=== PATIENT | female | born 1950 | race Two or more races ===

== ENCOUNTER 2020-05-14 08:31 | Emergency (ER) | payer OTHER ==
[~2020-05-14] VITALS: Ht 152.4 cm; Wt 78.0 kg
[2020-05-14 08:47] VITALS: BP 169/70
== END 2020-05-14 09:51 | disposition home or self-care (01) ==
LOC: ER 08:31
DX: M79.651 Pain in right thigh (principal); M54.31 Sciatica, right side; D64.9 Anemia, unspecified; E11.9 Type 2 diabetes mellitus without complications; I10 Essential (primary) hypertension; Z86.73 Personal history of transient ischemic attack (TIA), and cerebral infarction without residual deficits
CPT/HCPCS: 93971

== ENCOUNTER 2024-04-04 13:48 | Inpatient (IN) | payer OTHER ==
[~2024-04-04] VITALS: Ht 157.5 cm; Wt 74.6 kg
[~2024-04-04 13:48] MED LIST: CAPT25TA5 PO; METF-371 PO
[2024-04-04 14:41] LABS: Urine Bacteria None Seen /hpf (None Seen)
[2024-04-04 14:50] LABS: Urine Blood Negative /uL (Negative); Urine Clarity Clear (Clear); Urine Color Colorless (Yellow); Urine Protein, UAD Negative (Negative); Urine Specific Gravity 1.005 (1.001-1.035); Urine Urobilinogen Normal (Negative); Urine WBC <1 /hpf (0 - 5); Urine pH 5.5 (5.0-9.0)
[2024-04-04 14:59] LABS: Basophils # (auto) 0 10 ^3/uL (0-0.2); Basophils % (auto) 0.4 % (0.0-2.0); Eosinophils # (auto) 0.4 10 ^3/uL (0-0.8); Eosinophils % (auto) 4.3 % (0.0-7.0); Hematocrit 37.3 % (36.0-46.0); Hemoglobin 12.8 g/dL (12.2-16.2); Lymphocytes # (auto) 2.2 10 ^3/uL (0.4-5.4); Lymphocytes % (auto) 26.1 % (10.0-50.0); Mean Corpuscular Hemoglobin 32.2 pg (28.0-32.0); Mean Corpuscular Hgb Conc. 34.3 g/dL (32.0-36.0); Mean Corpuscular Volume 93.9 fL (80.0-100.0); Monocytes # (auto) 0.7 10 ^3/uL (0-1.3); Monocytes % (auto) 8.2 % (0.0-12.0); Neutrophils # (auto) 5.2 10 ^3/uL (1.6-8.6); Nucleated Red Blood Cells % 0.1 %; Platelet Count (auto) 259 10^3/uL (140-450); Red Blood Cells 3.98 10^6/uL (4.0-5.20); Red Cell Distribution Width 14.2 % (11.8-14.3); White Blood Cell 8.5 10^3/uL (4.4-10.8)
[2024-04-04 15:11] LABS: Alanine Aminotransferase 22 U/L (7-40); Albumin 4.7 g/dL (3.2-4.8); Alkaline Phosphatase 83 U/L (46-116); Anion Gap 7 (5-15); Aspartate Aminotransferase 22 U/L (13-40); BUN/Creatinine Ratio 17.8 (10.0-20.0); Bilirubin, Total 0.6 mg/dL (0.2-1.0); Blood Urea Nitrogen 21 mg/dL (9-23); Calcium 10.4 mg/dL (8.7-10.4); Carbon Dioxide 27 mmol/L (20-30); Chloride 107 mmol/L (98-107); Glucose 92 mg/dL (74-106); Potassium 4.5 mmol/L (3.5-5.1); Sodium 141 mmol/L (136-145); Total Protein 7.8 g/dL (5.7-8.2)
[2024-04-04] MEDS ORDERED: NITROGLYCERIN 0.4 MG SL TAB SL PRN (23:30)
[2024-04-04] MEDS ORDERED: DEXTROSE (50%) 50ML SYRG IV PRN (23:30)
[2024-04-04] MEDS ORDERED: hydrALAZINE HCL 20 MG/ML VL IV PRN (23:30)
[2024-04-04] MEDS ORDERED: MORPHINE SULFATE INJ 2 MG/ml SYRG IV PRN (23:30)
[2024-04-04] MEDS ORDERED: DOCUSATE SOD 100 MG CAP PO PRN (23:30)
[2024-04-04] MEDS ORDERED: ACETAMINOPHEN 325 MG TAB PO PRN (23:30)
[2024-04-04] MEDS: SODIUM CHLORIDE 0.9% 1,000 ML IV SCH (23:59)
[2024-04-05] VITALS (8 sets, daily range): BP systolic 113–138; BP diastolic 40–61; PULSE 47–62; RESP 16–20; TEMP 97.8–98.4; O2SAT 92–96
[2024-04-05] MEDS: HYDROcodone-ACET 5/325MG TAB PO PRN (01:23)
[2024-04-05] MEDS: ONDANSETRON HCL 4 MG/2 ML VIAL IV PRN (02:34)
[2024-04-05] MEDS ORDERED: LOSA-535 PO (03:09)
[2024-04-05 05:50] LABS: Basophils # (auto) 0 10 ^3/uL (0-0.2); Basophils % (auto) 0.4 % (0.0-2.0); Eosinophils # (auto) 0.3 10 ^3/uL (0-0.8); Eosinophils % (auto) 3.3 % (0.0-7.0); Hematocrit 34.9 % (36.0-46.0); Lymphocytes % (auto) 25.6 % (10.0-50.0); Mean Corpuscular Hemoglobin 32.2 pg (28.0-32.0); Mean Corpuscular Hgb Conc. 34.4 g/dL (32.0-36.0); Mean Corpuscular Volume 93.7 fL (80.0-100.0); Monocytes # (auto) 0.6 10 ^3/uL (0-1.3); Neutrophils # (auto) 4.9 10 ^3/uL (1.6-8.6); Neutrophils % (auto) 62.7 % (37.0-80.0); Platelet Count (auto) 224 10^3/uL (140-450); Red Blood Cells 3.72 10^6/uL (4.0-5.20); Red Cell Distribution Width 14.2 % (11.8-14.3); White Blood Cell 7.8 10^3/uL (4.4-10.8)
[2024-04-05 06:03] LABS: Alanine Aminotransferase 20 U/L (7-40); Albumin 4.1 g/dL (3.2-4.8); Alkaline Phosphatase 73 U/L (46-116); Anion Gap 6 (5-15); Aspartate Aminotransferase 19 U/L (13-40); BUN/Creatinine Ratio 18.3 (10.0-20.0); Bilirubin, Total 0.7 mg/dL (0.2-1.0); Blood Urea Nitrogen 20 mg/dL (9-23); Calcium 9.8 mg/dL (8.7-10.4); Carbon Dioxide 27 mmol/L (20-30); Chloride 106 mmol/L (98-107); Glucose 106 mg/dL (74-106); Potassium 4.1 mmol/L (3.5-5.1); Sodium 139 mmol/L (136-145); Total Protein 6.7 g/dL (5.7-8.2)
[2024-04-05] MEDS: InsuLIN REG 1unit/0.01ml Soln (100units/ml) SC SCH (06:13)
[2024-04-05] MEDS: ACCU-CHEK COMFORT CURVE STRIP VI SCH (06:13)
[2024-04-05] MEDS: ASPirin 81 mg TAB PO SCH (08:14)
[2024-04-05 15:42] LABS: Triglycerides 107 mg/dL (< 150)
[2024-04-05 15:43] LABS: LDL Cholesterol 56 mg/dL (< 100)
[2024-04-05 15:44] LABS: Cholesterol 105 mg/dL (< 200); HDL Cholesterol 32 mg/dL (40-59)
[2024-04-05] MEDS: MECLIZINE HCL 25 MG TAB PO ONE (17:17)
[2024-04-05] MEDS: ATORVASTATIN 20 MG TAB PO SCH (21:56)
[2024-04-05] MEDS ORDERED: MECLIZINE HCL 25 MG TAB PO SCH (22:00)
[2024-04-05] MEDS ORDERED: ATORVASTATIN 20 MG TAB PO SCH (22:00)
[2024-04-06] VITALS (7 sets, daily range): BP systolic 105–124; BP diastolic 41–67; PULSE 53–65; RESP 19–20; TEMP 36.8; O2SAT 94–100
[2024-04-06] MEDS: MECLIZINE HCL 25 MG TAB PO SCH (06:21)
[2024-04-06] MEDS: ASPirin-EC 81 mg tab PO SCH (10:18)
[2024-04-06] MEDS ORDERED: MECL12.586 PO (14:57)
== END 2024-04-06 17:09 | disposition home or self-care (01) | DRG 149 ==
LOC: ER 13:48 → TELE 23:23 → TELE-CENTR 04-05 02:50
PROVIDERS: ADMIT Nurse Practitioner Family; ATTEND Nurse Practitioner Family
DX: H81.10 Benign paroxysmal vertigo, unspecified ear (principal); D64.9 Anemia, unspecified; E11.9 Type 2 diabetes mellitus without complications; I10 Essential (primary) hypertension; Z79.899 Other long term (current) drug therapy
CPT/HCPCS: 36415; 70450; 70551; 71046; 80053; 80061; 81001; 82962; 83036; 84484; 85025; 86850; 86900; 86901; 93005; 93306; 97163; 99291; G0378; J1815; J2405